=== PATIENT | male | born 1970 | race Caucasian/White ===

== ENCOUNTER 2021-05-21 09:56 | Emergency (ER) | payer OTHER, SELFPAY ==
--- NOTE | ~2021-05-21 | CT_ITS ---
EXAMINATION: CT BRAIN AND CT CERVICAL SPINE WITHOUT CONTRAST CLINICAL INFORMATION: Trauma. COMPARISON: None TECHNIQUE: 5 mm thin axial and reformatted 2 mm thin sagittal and coronal images of brain were obtained. Subsequently axial 3 mm thin and reformatted 2 mm thin sagittal and coronal images of cervical spine were obtained without contrast. DLP 1459 mGy/cm. FINDINGS: Brain: There is no acute intra-axial, extra-axial bleed, masses, collection midline shift. There is no acute infarction evolution. There is no edema. The lateral ventricles are symmetrical in size and configuration without enlargement. The xiao to white matter differentiation is maintained normal. Bone windows reveal no calvarial abnormality. There is a left frontal scalp laceration. Bilateral paranasal sinuses and mastoid air cells are well-aerated and clear. Cervical spine: There is mild straightening of cervical lordosis. The vertebral heights and alignment is normal. There are no peripheral disc prosthesis at C3-C4-C5, C5-C6 and C6-C7 disc levels for disc fusion. The craniovertebral junction and the C1-C2 alignment is normal. Mild narrowing of left C2-C3, bilateral C3-C4, minimal C4-C5, moderate C5-C6 and mild C6-C7 neural foramina are noted. The prevertebral and paravertebral soft tissues are normal. CT/CT head/brain wo con IMPRESSION: No acute intracranial process seen except for left frontal scalp laceration. Disc fusion with Low Profile prosthesis C4-C5, C5-C6 and C6-C7 disc levels. There is no visible acute fracture, dislocation or subluxation seen.
--- NOTE | ~2021-05-21 | CT_ITS ---
EXAMINATION: CT BRAIN AND CT CERVICAL SPINE WITHOUT CONTRAST CLINICAL INFORMATION: Trauma. COMPARISON: None TECHNIQUE: 5 mm thin axial and reformatted 2 mm thin sagittal and coronal images of brain were obtained. Subsequently axial 3 mm thin and reformatted 2 mm thin sagittal and coronal images of cervical spine were obtained without contrast. DLP 1459 mGy/cm. FINDINGS: Brain: There is no acute intra-axial, extra-axial bleed, masses, collection midline shift. There is no acute infarction evolution. There is no edema. The lateral ventricles are symmetrical in size and configuration without enlargement. The xiao to white matter differentiation is maintained normal. Bone windows reveal no calvarial abnormality. There is a left frontal scalp laceration. Bilateral paranasal sinuses and mastoid air cells are well-aerated and clear. Cervical spine: There is mild straightening of cervical lordosis. The vertebral heights and alignment is normal. There are no peripheral disc prosthesis at C3-C4-C5, C5-C6 and C6-C7 disc levels for disc fusion. The craniovertebral junction and the C1-C2 alignment is normal. Mild narrowing of left C2-C3, bilateral C3-C4, minimal C4-C5, moderate C5-C6 and mild C6-C7 neural foramina are noted. The prevertebral and paravertebral soft tissues are normal. CT/CT cervical spine wo con IMPRESSION: No acute intracranial process seen except for left frontal scalp laceration. Disc fusion with Low Profile prosthesis C4-C5, C5-C6 and C6-C7 disc levels. There is no visible acute fracture, dislocation or subluxation seen.
[2021-05-21 10:19] VITALS: BP 163/103; BP 177/111; PULSE 61; PULSE 68; RESP 16; TEMP 36.9; O2SAT 98; O2SAT 99; BMI 26.6
--- NOTE | 2021-05-21 10:29 | ED.FALL ---
HPI - Fall General Chief Complaint: Fall Stated Complaint: Head pain/ fall Time Seen by Provider: 05/21/21 10:21 Source: patient Mode of arrival: EMS History of Present Illness HPI Narrative: This is 50 years old patient presented to emergency department via ambulance after a fall in the ice he is complaining of a headache and neck pain he has a laceration in the forehead complaint: fall Onset (ago): hour(s) (1 h ago) Fall from: standing Place fall occurred: street Location of injury: head Related Data Previous Rx's Medication Instructions Recorded oxycodone 5 mg tablet 5 mg PO Q8H PRN #12 tab 05/21/21 Allergies Allergy/AdvReac Type Severity Reaction Status Date / Time ARUN Inhibitors AdvReac Cough Verified 05/21/21 10:24 Review of Systems Constitutional: Constitutional: Reports no additional constitutional complaints Cardiovascular: Cardiovascular: Reports no additional cardiovascular complaints Respiratory: Respiratory: Reports no additional respiratory complaints Gastrointestinal: Gastrointestinal: Reports no additional gastrointestinal complaints Neurologic: Reports system reviewed and no additional complaints, except as documented Psychiatric: Psychiatric: Reports no additional psychiatric complaints [facility] Past Medical History Medical History HTN (hypertension) Surgical History Status post right knee replacement Social History Social History Smoked in Last 30 Days: No Use of substances other than those prescribed or required for medical reasons: No Advance Directives: No Advance Directives Information Provided: No Physical Exam Vital Signs: Vital Signs: Last Vital Signs Temp 98.5 F 05/21/21 10:19 Pulse 61 05/21/21 10:19 Resp 16 05/21/21 10:19 BP 159/114 H 05/21/21 11:11 Pulse Ox 98 05/21/21 10:19 BMI result Body Mass Index 26.6 Const: General: cooperative Nutritional Appearance: average body habitus Orientation/consciousness: patient oriented x3 HENMT: Head: Yes other (5 Cm laceration left forehead) Ears: hearing grossly normal bilaterally General nose exam: Normal external nose present Face and sinus: Yes normal facial exam Throat: Yes posterior oropharynx normal Neck: Neck: Yes normal visual inspection and Yes full ROM Chest: Chest palpation & inspection: normal inspection of the chest Resp: Effort & Inspection: normal respiratory effort and able to speak in complete sentences Auscultation: clear to auscultation bilaterally Cardio: Jugular venous distension: no JVD Rate: regular rate Rhythm: regular rhythm GI: Inspection: Yes normal to inspection Palpation (GI): Soft to palpation, not firm, nontender and no guarding : General: Yes CVA tenderness and Yes no CVA tenderness Back/Spine/Pelvis: Back: no CVA tenderness and CVA tenderness Skin: General skin exam: no rashes or lesions noted and elasticity normal Neuro: General: patient oriented x3 Procedures Laceration 5 cm lceration left forehead: Side (If applicable): left Size (cm): 5 Description: linear Depth: simple, single layer Local Anesthetic: lidocaine 1% Amount of anesthesia used (mL): 3 Pre-repair: wound explored and irrigated extensively Skin layer closed with: nylon Size (cm): 5-0 Number of sutures: 10 Technique: simple, interrupted MDM - Fall Imaging Data CT scan - head: Radiologist's impression: Brain: There is no acute intra-axial, extra-axial bleed, masses, collection midline shift. There is no acute infarction evolution. There is no edema. The lateral ventricles are symmetrical in size and configuration without enlargement. The xiao to white matter differentiation is maintained normal. Bone windows reveal no calvarial abnormality. There is a left frontal scalp laceration. Bilateral paranasal sinuses and mastoid air cells are well-aerated and clear. Cervical spine: There is mild straightening of cervical lordosis. The vertebral heights and alignment is normal. There are no peripheral disc prosthesis at C3-C4-C5, C5-C6 and C6-C7 disc levels for disc fusion. The craniovertebral junction and the C1-C2 alignment is normal. Mild narrowing of left C2-C3, bilateral C3-C4, minimal C4-C5, moderate C5-C6 and mild C6-C7 neural foramina are noted. The prevertebral and paravertebral soft tissues are normal. CT/CT head/brain wo con IMPRESSION: No acute intracranial process seen except for left frontal scalp laceration. ? Disc fusion with Low Profile prosthesis C4-C5, C5-C6 and C6-C7 disc levels. There is no visible acute fracture, dislocation or subluxation seen.? Dictated By: Salvador Espitia MD Signed By: <Electronically signed by Salvador Discharge Plan Discharge Clinical Impression: Head injury, Forehead laceration Patient Disposition: Home, Self-Care Instructions: Laceration (ED), Head Injury (ED) Prescriptions: New oxycodone 5 mg tablet 5 mg PO Q8H PRN (Reason: pain) Qty: 12 RF: 0 Interventions: ED Discharge Assessment Last Done: 05/21/21 11:37 Discharge Date/Time: 05/21/21 11:37
[2021-05-21] MEDS: oxyCODONE HCl Immed Release 5 MG TABLET 10 MG PO (11:10)
[2021-05-21 11:11] VITALS: BP 159/114
== END 2021-05-21 11:37 | disposition home or self-care (01) ==
LOC: HO.ED 11:19
PROVIDERS: Emergency Provider Emergency Medicine; PCP Internal Medicine
DX: S01.81XA Laceration without foreign body of other part of head, initial encounter (principal); I10 Essential (primary) hypertension; W00.0XXA Fall on same level due to ice and snow, initial encounter; Y93.9 Activity, unspecified; Y92.410 Unspecified street and highway as the place of occurrence of the external cause; Y99.9 Unspecified external cause status
CPT/HCPCS: 12013; 70450; 72125; 99284

== ENCOUNTER → 2021-05-28 09:55 | Outpatient (BNVA) | payer OTHER, SELFPAY | PROVIDERS: PCP Internal Medicine; Visit Provider Physician Assistant Medical | DX: S06.2X0A Diffuse traumatic brain injury without loss of consciousness, initial encounter (principal); S01.81XA Laceration without foreign body of other part of head, initial encounter; S83.92XA Sprain of unspecified site of left knee, initial encounter; S43.402A Unspecified sprain of left shoulder joint, initial encounter; S16.1XXA Strain of muscle, fascia and tendon at neck level, initial encounter; W10.9XXA Fall (on) (from) unspecified stairs and steps, initial encounter; Z48.02 Encounter for removal of sutures | CPT/HCPCS: 73030; 73564; 99204 ==

== ENCOUNTER 2021-06-03 11:01 | Outpatient (RCR) | payer OTHER, SELFPAY ==
--- NOTE | 2021-06-03 12:26 | MHC.PT.EP ---
[facility] [place] Office [place] Office [place] Office [address] Jackie Singh [address] [phone] F: [phone] F: [phone] F: [phone] F: [phone] Physical Therapy Plan of Care Date of Evaluation: Date of Surgery: Diagnosis: This is a 50 yo male presenting to skilled PT with a script for L shoulder injury (? impingement) and cervical strain with resolving concussion after fall on ice Assessment: Patient fell down a flight of stairs (12) on 05/21/21 while at work (works as project management it specialist). He went to the emergency room and had head CT, cervical CT, x-ray of the knee and shoulder performed. He fell onto his L shoulder wrist and knee. He also endured a head laceration. At this point in his recovery he has continuing shoulder pain and cervical soreness. He is RHD. He is back to work in full (works mainly at a computer) and follows with work connection next week. He was having MARKHAM's which have resolved but has some continuing lightheadedness that is on/off. His L shoulder pain increases with lifting up and over head and across his body. Pain is located anterior and superior. Pain is described as achy. His cervical symptoms are described as sore and located at c-spine paraspinals. Assessment reveals pain that ranges up to a 6/10 at the worst. He demos decreased B shoulder and cervical ROM, decreased B shoulder and scapular strength, impaired resting posture with forward head, rounded shoulders and adducted UEs, impaired GHJ, scapular and cervical joint mobility as well as gross functional decline with lifting, reaching across the body and rolling in bed. He is a good candidate for skilled PT 2x/wk for 5wks. Frequency and Duration: The patient will be seen 2x/wk for 5wks Short Term Goals: I in HEP Demo proper scap retract and depress with strengthening exercises Condemnation Engineer Goals: Demo normal shoulder AROM without pain Improve pain to no more than 2/10 at the worst Improve SPADI by 10 points Tolerate sleeping through the night without waking from pain Demo at least 4+/5 scapular and shoulder strength Treatment Plan: Modalities to reduce pain, spasms and effusion. Manual therapy to restore motion and function. Therapeutic exercise to improve strength and flexibility. Neuromuscular re-education for posture and balance. Therapeutic activities to return to functional activities of daily living. Electronically signed by: Mary Rhodes PT Please sign and return to therapist. Thank you for your referral.
--- NOTE | 2021-06-10 07:47 | MHC.PT.DC ---
[facility] [place] Office [place] Office [place] Office [address] Jackie Singh [address] [phone] F: [phone] F: [phone] F: [phone] F: [phone] Physical Therapy Discharge Report Diagnosis: This is a 50 yo male presenting to skilled PT with a script for L shoulder injury (? 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 He went to the emergency room and had head CT, cervical CT, x-ray of the knee and shoulder performed. He fell onto his L shoulder wrist and knee. He also endured a head laceration. At this point in his recovery he has continuing shoulder pain and cervical soreness. He is RHD. He is back to work in full (works mainly at a computer) and follows with work connection next week. He was having MARKHAM's which have resolved but has some continuing lightheadedness that is on/off. His L shoulder pain increases with lifting up and over head and across his body. Pain is located anterior and superior. Pain is described as achy. His cervical symptoms are described as sore and located at c-spine paraspinals. Assessment reveals pain that ranges up to a 6/10 at the worst. He demos decreased B shoulder and cervical ROM, decreased B shoulder and scapular strength, impaired resting posture with forward head, rounded shoulders and adducted UEs, impaired GHJ, scapular and cervical joint mobility as well as gross functional decline with lifting, reaching across the body and rolling in bed. He is a good candidate for skilled PT 2x/wk for 5wks however patient cancelled two schedule follow-up visits and reported feeling better and returned to work in full. He would like to be DC'd. Electronically signed by: Mary Dubuc, PT Please sign and return to therapist. Thank you for your referral.
== END 2021-06-10 07:47 | disposition home or self-care (01) ==
LOC: HO.PTCHIC 11:01
PROVIDERS: PCP Internal Medicine; Visit Provider Physician Assistant Medical
DX: M25.512 Pain in left shoulder (principal); S16.1XXA Strain of muscle, fascia and tendon at neck level, initial encounter; Z91.81 History of falling
CPT/HCPCS: 97110; 97163

== ENCOUNTER → 2021-06-12 10:30 | Outpatient (BNVA) | payer OTHER, SELFPAY | PROVIDERS: PCP Internal Medicine; Visit Provider Physician Assistant | DX: S01.81XA Laceration without foreign body of other part of head, initial encounter (principal); S43.402A Unspecified sprain of left shoulder joint, initial encounter; S83.92XA Sprain of unspecified site of left knee, initial encounter; W00.0XXA Fall on same level due to ice and snow, initial encounter | CPT/HCPCS: 99213 ==